=== PATIENT | female | born 1955 | race Caucasian/White ===

== ENCOUNTER 2023-03-15 10:32 | Day surgery (SDC) | payer MEDICARE, SELFPAY ==
[2023-03-15] VITALS (9 sets, daily range): BP systolic 125–149; BP diastolic 73–91; PULSE 86–91; RESP 16; TEMP 36.1–36.4; O2SAT 96–99; BMI 30.4
--- NOTE | 2023-03-15 11:22 | PCM.HP.BLA ---
History and Physical Date of Admission: 03/15/23 The patient is examined and there are no changes from the previous exam dated 02/20/2023. We will be proceeding with right ear repair status post laceration. Assessment & Plan Assessment/Plan (1) Laceration of right ear: (2) Laceration without foreign body of right ear, sequela: PLAN: Plan Repair right external ear with layered closure.
[2023-03-15] MEDS: Lidocaine 1% /Epi 1:100 9 ML, Sodium Bicarbonate 1 MEQ OPERA.SITE (12:13)
--- NOTE | 2023-03-15 12:41 | DCINST_ITS ---
Discharge Instructions Diet Discharge Diet: No restrictions Activity Additional Activity Instructions:: Keep your back elevated (recliner position) for the next 3-4 nights to reduce bleeding and swelling. Dressing / Incision Additional Dressing/Incision Instructions:: Keep the tape in place and dry. Do not remove, however if it falls off, may apply a thin layer of antibiotic ointment (like neosporin) every other day. Follow Up Care Please Follow Up With: Savanna Alaniz MD When: as scheduled Test Results: Test results from this visit will be discussed in further detail at your follow- up appointment, if applicable. Discharge Plan Admission Attending Provider: Savanna Alaniz Primary Care Provider: Bakari Manzano Discharge Orders/Prescriptions Prescriptions: No Action albuterol sulfate 90 mcg/actuation HFA aerosol inhaler 2 puff inhalation BID budesonide-formoterol [Symbicort] 80-4.5 mcg/actuation HFA aerosol inhaler 2 puff inhalation BID bupropion HCl 150 mg tablet sustained-release 12 hr 150 mg PO BID latanoprost 0.005 % drops 1 drp ophthalmic (eye) DAILY lisinopril 20 mg tablet 20 mg PO BID atorvastatin 20 mg tablet 20 mg PO DAILY amlodipine 10 mg tablet 10 mg PO DAILY montelukast 10 mg tablet 10 mg PO DAILY omeprazole 20 mg capsule,delayed release(DR/EC) 40 mg PO DAILY PNV #[id number] 30 mg iron-10 mg iron-1 mg capsule 1 cap PO DAILY cholecalciferol (vitamin D3) 25 mcg (1,000 unit) tablet 25 mcg PO DAILY calcium citrate-vitamin D3 [Citracal + D Maximum] 315 mg-6.25 mcg (250 unit) tablet 1 tab PO DAILY Referrals / Follow Up: Bakari Manzano MD [Primary Care Provider] - Disposition Disposition (needs filled in before D/C Order can be placed): Home, Self Care
--- NOTE | 2023-03-15 12:45 | PCM.OPRPT ---
Problems Associated Problem List Diagnoses (1) Laceration of right ear: (2) Laceration without foreign body of right ear, sequela: Report of Operation Date of Procedure: 03/15/23 Pre-Operative Diagnosis: History laceration right ear with abnormal appearance Post-Operative Diagnosis: same Surgery/Procedure Performed:: Debridement healed laceration edges; intermediate closure right ear wound (2.0 cm) Surgeon: Savanna Alaniz Type of Anesthesia: Local Drains: none Estimated Blood Loss (mL): minimal Description of Procedure: The patient was brought to the operating room and placed on the operating room table in the supine position. The right ear was prepped and draped in the usual sterile fashion. 1% Xylocaine with epinephrine buffered with sodium bicarb was used to anesthetize the site. The laceration edges are debrided. Hemostasis is controlled with cautery. The wound is then closed in layers using Vicryl sutures for the subcutaneous tissue. Skin edges are approximated with a running and plain 5-0 gut suture. Dermabond is applied to the site along with quarter inch Steri-Strips. She tolerated the procedure well and was taken to the recovery area in an awake and stable condition. Needle and sponge counts are correct. Complications none
== END 2023-03-15 13:08 | disposition home or self-care (01) ==
LOC: SDC 10:33 → AC 10:36
PROVIDERS: Referring Provider Plastic Surgery; Visit Provider Plastic Surgery
PROC: (CPT 12051; principal; 2023-03-15 11:45)
DX: S01.311A Laceration without foreign body of right ear, initial encounter (principal); Z79.899 Other long term (current) drug therapy; X58.XXXA Exposure to other specified factors, initial encounter
CPT/HCPCS: 12051; 00300